=== PATIENT | female | born 1960 | race Caucasian/White ===

== ENCOUNTER → 2016-11-22 | Outpatient (CLI) | payer MEDICAID | LOC: FIMAGING 15:35 | PROVIDERS: ATTEND Nurse Practitioner Family | DX: J06.9 Acute upper respiratory infection, unspecified (principal); J84.10 Pulmonary fibrosis, unspecified ==

== ENCOUNTER → 2016-12-27 | Outpatient (CLI) | payer MEDICAID | LOC: FIMAGING 12:42 | PROVIDERS: ATTEND Internal Medicine Cardiovascular Disease | DX: R14.0 Abdominal distension (gaseous) (principal); R16.0 Hepatomegaly, not elsewhere classified | CPT/HCPCS: 76700-PO ==

== ENCOUNTER → 2017-01-04 | Outpatient (CLI) | payer MEDICAID | LOC: FIMAGING 12:53 | DX: Z12.31 Encounter for screening mammogram for malignant neoplasm of breast (principal); R92.8 Other abnormal and inconclusive findings on diagnostic imaging of breast | CPT/HCPCS: G0202 ==

== ENCOUNTER → 2017-01-16 | Outpatient (CLI) | payer MEDICAID | LOC: FIMAGING 10:16 | PROVIDERS: ATTEND Family Medicine | DX: R92.8 Other abnormal and inconclusive findings on diagnostic imaging of breast (principal) | CPT/HCPCS: G0206 ==

== ENCOUNTER → 2017-01-21 | Outpatient (CLI) | payer MEDICAID ==
[~2017-01-21] MED LIST: THROMBIN (BOVINE) 5,000 UNIT VIAL TP ONE
== END ==
LOC: FIMAGING 11:39
PROVIDERS: ATTEND Family Medicine
PROC: 0HBU3ZX Excision of Left Breast, Percutaneous Approach, Diagnostic (ICD-10-PCS; principal; 2017-01-21)
DX: N60.12 Diffuse cystic mastopathy of left breast (principal)

== ENCOUNTER → 2017-01-23 | Outpatient (CLI) | payer MEDICAID | LOC: FIMAGING 10:17 | PROVIDERS: ATTEND Family Medicine | DX: Z09 Encounter for follow-up examination after completed treatment for conditions other than malignant neoplasm (principal) | CPT/HCPCS: G0206 ==

== ENCOUNTER → 2017-07-09 | Outpatient (CLI) | payer MEDICAID | LOC: FIMAGING 12:49 | PROVIDERS: ATTEND Internal Medicine Infectious Disease | DX: R53.83 Other fatigue (principal); R53.81 Other malaise; R06.02 Shortness of breath ==

== ENCOUNTER → 2017-10-15 | Outpatient (CLI) | payer MEDICAID | LOC: FIMAGING 14:01 | PROVIDERS: ATTEND Family Medicine | DX: Z03.89 Encounter for observation for other suspected diseases and conditions ruled out (principal); R09.89 Other specified symptoms and signs involving the circulatory and respiratory systems; R06.7 Sneezing ==

== ENCOUNTER 2017-12-07 19:00 | Emergency (ER) | payer MEDICAID ==
[2017-12-07 19:10] VITALS: TEMP 97.3; O2SAT 94
--- NOTE | 2017-12-07 19:15 | EDPHY ---
H & P Stated Complaint: resp concerns, cough Time Seen by Provider: 12/07/17 19:14 - Personal History Current Tetanus Diphtheria and Acellular Pertussis (TDAP): Unsure - Medical/Surgical History Hx Asthma: No Hx Chronic Respiratory Disease: No Hx Diabetes: No Hx Cardiac Disease: Yes Hx Renal Disease: No Hx Cirrhosis: No Hx Alcoholism: No Hx HIV/AIDS: No Hx Splenectomy or Spleen Trauma: No Other PMH: heart valve x2, pig valve 2008. pacemaker, AICD. hep c. recovering opiate addiction x4 yrs clean - Social History Smoking Status: Never smoked Constitutional: Initial Vital Signs Temperature (C) 36.3 C 12/07/17 19:06 Heart Rate 76 12/07/17 19:06 Respiratory Rate 18 12/07/17 19:06 Blood Pressure 131/87 H 12/07/17 19:06 O2 Sat (%) 94 12/07/17 19:06 O2 Delivery Mode Room Air Allergies/Adverse Reactions: No Known Allergies Allergy (Verified 01/17/17 10:33) Home Medications: Medication Instructions Recorded Aspirin [Aspirin 81mg (*)] 81 mg PO DAILY #60 tab 09/15/15 Fluconazole [Diflucan (*)] 800 mg PO DAILY #90 tab 09/15/15 guaiFENesin [Mucinex 600 MG (*)] 1,200 mg PO BID #30 tab.er 09/15/15 Leonora Allergy 12/07/17 Estradiol 12/07/17 Progesterone 12/07/17 Robitussin 12/07/17 Medical Decision Making - Diagnostics Imaging Results: Imaging Impressions Chest X-Ray 12/07/17 19:31 Impression: Stable appearance, compared to 07/09/2017. Imaging: I viewed and interpreted images myself ED Course/Re-evaluation: CHIEF COMPLAINT: Pleuritic chest pain HISTORY OF PRESENT ILLNESS: The patient is a 57 y/o female complaining of burning pleuritic chest pain for the last 48 hours. 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 Her pain is located across her entire chest and much worse with inspiration and coughing. She has associated chills, subjective fever, dry cough, headaches, and myalgias and believes she may have the flu. She denies rhinorrhea, diarrhea, constipation , vomiting, nausea, and abdominal pain. She has been using higher than recommended doses of Excedrin and ibuprofen for symptoms since onset. She contacted her infectious disease doctor and was referred to the ED for evaluation. REVIEW OF SYSTEMS: A 10 point review of systems was performed and is negative with the exception of the elements mentioned in the history of present illness. PHYSICAL EXAM: HR, BP, O2 Sat, RR. Temp noted General Appearance: Alert, well hydrated, appropriate, and non-toxic appearing. Head: Atraumatic without scalp tenderness or obvious injury Eyes: Pupils equal, round, reactive to light and accommodation, EOMI, no trauma , no injection. Ears: Clear bilaterally, no perforation, normal landmarks Nose: Atraumatic, no rhinorrhea, clear. Throat: There is no erythema or exudates, no lesions, normal tonsils, mucus membranes moist. Neck: Supple, nontender, no lymphadenopathy. Respiratory: No retractions, no distress, no wheezes, and no accessory muscle use. Lungs are clear to auscultation bilaterally. Cardiovascular: Regular rate and rhythm, no murmurs, rubs, or gallops. Good capillary refill all extremities. Gastrointestinal: Abdomen is soft, nontender, non-distended, no masses, no rebound, no guarding, no peritoneal signs. Musculoskeletal: Normal active ROM of all extremities, atraumatic. Neurological: Alert, appropriate, and interactive. The patient has non-focal cranial nerves, motor, sensory, and cerebellar exam. Skin: No rashes, good turgor, no nodules on palpation. Clammy, hot to the touch. Past medical history: Bacterial endocarditis, hepatitis C, recovering opiate addiction x4 yrs clean, septic pulmonary embolism 2014 Past surgical history: Two heart valve replacement, pig valve 2007, AICD pacemaker Family history: Noncontributory Social history: Former opiate abuse. Lives in [place]. Disabled and not employed. Prior medical records reviewed including admission 08/29/15 for endocarditis and sepsis. DIAGNOSTICS/PROCEDURES/CRITICAL CARE TIME: Chest x-ray: stable from prior, no infiltrate DIFFERENTIAL DIAGNOSIS: The differential diagnosis for the patient's pleuritic chest pain included but was not limited to upper respiratory infection , complication related to prior endocarditis and valve replacements, pneumonia, myocardial infarction, acute mountain sickness, high altitude pulmonary edema, congestive heart failure, and pulmonary embolus. MEDICAL DECISION MAKING: This is a 57 y/o female with a complicated endocarditis and open heart surgery history who presents with a 48-hour history of pleuritic chest pain with associated chills, myalgias, cough, and headaches. She is generally non-toxic- appearing, lungs are clear to auscultation, and she is not hypoxemic nor febrile. Plan for IV, labs, chest x-ray, flu swab. Flu swab positive for flu B. No infiltrate on chest x-ray. She does not meet criteria for sepsis and is non-toxic on exam. Patient will be discharged with script for albuterol and standard flu care and follow up instructions. Return precautions discussed. - Data Points Laboratory Results: Laboratory Results 12/07/17 19:40 12/07/17 19:40 12/07/17 12/07/17 12/07/17 19:40 19:40 19:40 WBC 4.88 10^3/uL 10^3/uL (3.80-9.50) RBC 4.60 10^6/uL 10^6/uL (4.18-5.33) Hgb 14.7 g/dL g/dL (12.6-16.3) Hct 40.6 % % (38.0-47.0) MCV 88.3 fL fL (81.5-99.8) MCH 32.0 pg pg (27.9-34.1) MCHC 36.2 g/dL g/dL (32.4-36.7) RDW 11.6 % % (11.5-15.2) Plt Count 148 10^3/uL L 10^3/uL (150-400) MPV 10.2 fL fL (8.7-11.7) Neut % (Auto) 56.6 % % (39.3-74.2) Lymph % (Auto) 25.2 % % (15.0-45.0) [place] % (Auto) 16.4 % H % (4.5-13.0) Eos % (Auto) 1.2 % % (0.6-7.6) Baso % (Auto) 0.4 % % (0.3-1.7) Nucleat RBC Rel Count 0.0 % % (0.0-0.2) Absolute Neuts (auto) 2.76 10^3/uL 10^3/uL (1.70-6.50) Absolute Lymphs (auto) 1.23 10^3/uL 10^3/uL (1.00-3.00) Absolute Monos (auto) 0.80 10^3/uL 10^3/uL (0.30-0.80) Absolute Eos (auto) 0.06 10^3/uL 10^3/uL (0.03-0.40) Absolute Basos (auto) 0.02 10^3/uL 10^3/uL (0.02-0.10) Absolute Nucleated RBC 0.00 10^3/uL 10^3/uL (0-0.01) Immature Gran % 0.2 % % (0.0-1.1) Immature Gran # 0.01 10^3/uL 10^3/uL (0.00-0.10) Sodium 137 mEq/L mEq/L (135-145) Potassium 4.7 mEq/L mEq/L (3.5-5.2) Chloride 106 mEq/L mEq/L (97-110) Carbon Dioxide 21 mEq/l L mEq/l (22-31) Anion Gap 10 mEq/L mEq/L (8-16) BUN 10 mg/dL mg/dL (7-23) Creatinine 0.9 mg/dL mg/dL (0.6-1.0) Estimated GFR > 60 Glucose 105 mg/dL H mg/dL (70-100) Calcium 9.3 mg/dL mg/dL (8.5-10.4) Nasal Influenza A PCR NEGATIVE FOR FLU A (NEGATIVE) Nasal Influenza B PCR FLU B DETECTED H (NEGATIVE) RSV (PCR) NEGATIVE FOR RSV (NEGATIVE) Departure - Departure Disposition: Home, Routine, Self-Care Clinical Impression: Influenza Condition: Good Instructions: Influenza (ED) Additional Instructions: 1. Use Tylenol and ibuprofen as directed for pain or fever over the next few days. 2. Increase fluid intake. 3. Follow up with your primary care provider for unimproved symptoms over the next week. 4. Return to the ED for worsening of condition. Adult Pain & Fever Control: We recommend Acetaminophen (Tylenol) and Ibuprofen (Motrin,Advil) for pain and fever control. When fever is high or pain severe, both drugs can be used at the same time, but at different intervals. Please note the time differences. Your dose is: Acetaminophen 650mg every 4 to 6 hours Ibuprofen 600mg every 6-8 hours with food Note: do not take Acetaminophen with Hydrocodone (Vicodin, Lortab) or Oxycodone (Percocet). These medications also contain Acetaminophen. No more than 3000mg of Acetaminophen should be taken in 24 hours (for an adult). Referrals: Michelle Molina MD [Primary Care Provider] - As per Instructions Report Scribed for: Eloy Mcintosh Report Scribed by: Ana Rosa Woodson Date of Report: 12/07/17 Time of Report: 19:40
[2017-12-07 19:57] LABS: PLATELET COUNT 148 10^3/uL (150-400)
[2017-12-07] MEDS ORDERED: ALBUTEROL INH PREPACK MDI TAKEHOME ONE (20:44)
[2017-12-07 20:53] VITALS: RESP 16
[2017-12-07 20:59] VITALS: BP 126/78; PULSE 70
== END 2017-12-07 21:04 | disposition home or self-care (01) ==
DX: J10.1 Influenza due to other identified influenza virus with other respiratory manifestations (principal); Z79.82 Long term (current) use of aspirin; Z95.0 Presence of cardiac pacemaker

== ENCOUNTER → 2018-11-25 | Outpatient (CLI) | payer MEDICAID | LOC: FIMAGING 12:46 | PROVIDERS: ATTEND Family Medicine | DX: Z12.31 Encounter for screening mammogram for malignant neoplasm of breast (principal) ==